=== PATIENT | male | born 1965 | race Caucasian/White ===

== ENCOUNTER 2018-12-19 20:57 | Emergency (ER) | payer SELFPAY ==
[~2018-12-19] VITALS: Ht 162.6 cm; Wt 64.0 kg
[2018-12-19] MEDS ORDERED: LIDOCAINE 1%/EPI 1:100,000 10 ML VIAL IJ ONE (23:15)
[2018-12-19] MEDS ORDERED: LIDOCAINE HCL/EPINEPHRINE 1%-EPI 1:100,000 20 ML VIAL INFIL NR (23:45)
[2018-12-20] MEDS ORDERED: CEFTRIAXONE SODIUM 250 MG/VIAL IM ONE (01:30)
[2018-12-20] MEDS ORDERED: TETANUS, DIPHTHERIA, PERTUSSIS VAC/PF 0.5ML (>7YR OLD) IM ONE (01:30)
[2018-12-20 12:00] VITALS: BP 132/82
[2018-12-20] MEDS ORDERED: CHLORDIAZEPOXIDE 25MG CAPSULE PO ONE (12:15)
== END 2018-12-20 12:32 | disposition home or self-care (01) ==
LOC: ER 20:57
DX: F10.129 Alcohol abuse with intoxication, unspecified (principal); Y90.8 Blood alcohol level of 240 mg/100 ml or more; S91.311A Laceration without foreign body, right foot, initial encounter; X58.XXXA Exposure to other specified factors, initial encounter; Z59.0 Homelessness; Y93.89 Activity, other specified; Y92.89 Other specified places as the place of occurrence of the external cause; Z23 Encounter for immunization
CPT/HCPCS: 36415; 73630; 80320; 90471; 90715; 96372; 99284; J0696; J3490; Z7610; G0480